=== PATIENT | female | born 1985 | race Caucasian/White ===

== ENCOUNTER 2017-10-05 15:35 | Emergency (ER) | payer OTHER ==
[~2017-10-05] VITALS: Ht 165.1 cm; Wt 147.4 kg
[~2017-10-05 15:35] MED LIST: KEFLEX500 MG PO; LAMOTRIGINE100 MG PO; MILK OF MA400 MG/5 M PO; NORCO 5-325 TA1 EACH PO; TYLENOL 8 HOUR650 MG PO; ZANTAC150 MG PO; [UNRECOGNIZED DRUG - SUPPLY] MC
[2017-10-05] MEDS ORDERED: ACETAMINOPHEN-1 EAC1 PO (16:46)
[2017-10-05] MEDS ORDERED: CRUTCH1 EACH (16:47)
== END 2017-10-05 17:10 | disposition home or self-care (01) ==
LOC: ED 15:35
DX: S93.402A Sprain of unspecified ligament of left ankle, initial encounter (principal); X50.9XXA Other and unspecified overexertion or strenuous movements or postures, initial encounter; E66.9 Obesity, unspecified; K21.9 Gastro-esophageal reflux disease without esophagitis; J45.909 Unspecified asthma, uncomplicated; Z88.5 Allergy status to narcotic agent; Z79.899 Other long term (current) drug therapy
CPT/HCPCS: 73610; 99283

== ENCOUNTER 2018-02-04 19:10 | Emergency (ER) | payer OTHER ==
[~2018-02-04] VITALS: Ht 165.1 cm; Wt 154.7 kg
[~2018-02-04 19:10] MED LIST changes: +ACETAMINOPHEN-1 EAC1 PO; +CRUTCH1 EACH
[2018-02-04] MEDS ORDERED: ZOFRAN4 MG PO (19:28)
[2018-02-04] MEDS ORDERED: OMEPRAZOLE20 MG PO (19:28)
== END 2018-02-04 21:53 | disposition left against medical advice (07) ==
LOC: ED 19:10
DX: K52.9 Noninfective gastroenteritis and colitis, unspecified (principal); E66.9 Obesity, unspecified; K21.9 Gastro-esophageal reflux disease without esophagitis; J45.909 Unspecified asthma, uncomplicated; Z88.5 Allergy status to narcotic agent; Z79.899 Other long term (current) drug therapy
CPT/HCPCS: 80053; 81001; 84703; 96361; 96374; 99284; J2405; J7030

== ENCOUNTER 2018-11-05 20:50 | Emergency (ER) | payer OTHER ==
[~2018-11-05] VITALS: Ht 165.1 cm; Wt 149.2 kg
[~2018-11-05 20:50] MED LIST changes: +OMEPRAZOLE20 MG PO; +ZOFRAN4 MG PO
--- OUTSIDE RECORDS SUMMARY | 2018-11-05 20:54 | XMS ---
PreManage Notification: NEVIN YATES Security Carcass Splitter Events 1 event(s) in the past 18 months Most recent security events: Elopement at [facility] 02/04/2018 19:10 - Patient eloped before treatment completed. Details: AMA CRITERIA MET - Group Notification CARE PROVIDERS ANGELICA COMBS Physician Assistant Lorin Corona PHONE: [phone] Nimesh has no Care Guidelines for this patient. Jonnie VISIT COUNT (12 MO.) 2 [facility]. TOTAL 2 NOTE: Visits indicate total known visits. ED/UCC VISIT TRACKING (12 MO.) 11/05/2018 20:51 [facility] [place] TYPE: Emergency COMPLAINT: - WOUND CHECK/SORE,LEFT SIDE 02/04/2018 19:10 [facility] [place] TYPE: Emergency COMPLAINT: - VOMITING/EAR PAIN DIAGNOSES: - Unspecified asthma, uncomplicated - Allergy status to narcotic agent status - Other skilled nursing (current) drug therapy - Obesity, unspecified - Gastro-esophageal reflux disease without esophagitis - Nausea with vomiting, unspecified - Noninfective gastroenteritis and colitis, unspecified INPATIENT VISIT TRACKING (12 MO.) No inpatient visits to display in this time frame [id number]
[2018-11-05] MEDS ORDERED: VENTOLIN HFA18 GM INH (21:06)
[2018-11-05] MEDS ORDERED: BACTRIM DS TAB1 EACH PO (21:43)
== END 2018-11-05 22:03 | disposition home or self-care (01) ==
LOC: ED 20:50
DX: L02.211 Cutaneous abscess of abdominal wall (principal); E66.9 Obesity, unspecified; K21.9 Gastro-esophageal reflux disease without esophagitis; Z88.5 Allergy status to narcotic agent; Z79.899 Other long term (current) drug therapy
CPT/HCPCS: 99283

== ENCOUNTER 2020-01-09 09:42 | Emergency (ER) | payer OTHER ==
[~2020-01-09] VITALS: Ht 165.1 cm; Wt 142.9 kg
[~2020-01-09 09:42] MED LIST changes: +BACTRIM DS TAB1 EACH PO; +MOBIC15 MG PO; +VENTOLIN HFA18 GM INH
--- OUTSIDE RECORDS SUMMARY | 2020-01-09 09:44 | XMS ---
PreManage Notification: NEVIN YATES Security Music Engineer Events No recent Security Events currently on file CRITERIA MET - Group Notification - PDMP CARE PROVIDERS SILVIA LOMBARDI [facility] 12/12/2018-Current PHONE: [phone] SILVIA LOMBARDI Dentist: Protohistorian 12/12/2018-Current PHONE: [phone] [facility] Current PHONE: [phone] Nimesh has no Care Guidelines for this patient. E.D. VISIT COUNT (12 MO.) 1 [facility] P[facility]co TOTAL 1 NOTE: Visits indicate total known visits. ED/UCC VISIT TRACKING (12 MO.) 01/09/2020 09:42 [facility] [place] TYPE: Emergency COMPLAINT: - RIGHT WRIST PAIN INPATIENT VISIT TRACKING (12 MO.) No inpatient visits to display in this time frame [id number]
[2020-01-09] MEDS ORDERED: NORCO 5-325 TA1 EACH PO (11:42)
--- NOTE | 2020-01-11 16:00 | NUR ---
PT CALLED WITH COMPLAINT ABOUT NOT GETTING CORRECT SCRIPTS FOR HER WRIST BRACES. PT STATES THAT HER INSURANCE WOULD NOT PAY WITH THE SCRIPT SHE HAD. ORIGINALLY SEEN BY DR LANDERS. DOWN TO ER TO SPEAK WITH DR LANDERS, NEW ORDER WRITTEN, FAXED TO [facility]. CALL PLACED TO [facility] WHO STATES PRESCRIPTION WILL WORK. PT NOTIFIED OF THIS, HARD COPY GIVEN TO ER ADMITTING FOR PT TO RECEIVABLE MANAGER AND PROBLEM RESOLVED.
== END 2020-01-09 12:06 | disposition home or self-care (01) ==
LOC: ED 09:42
DX: G56.01 Carpal tunnel syndrome, right upper limb (principal); E66.9 Obesity, unspecified; K21.9 Gastro-esophageal reflux disease without esophagitis; J45.909 Unspecified asthma, uncomplicated; E11.9 Type 2 diabetes mellitus without complications; Z88.5 Allergy status to narcotic agent; Z79.899 Other long term (current) drug therapy
CPT/HCPCS: 73110; 99283-25

== ENCOUNTER 2020-12-01 06:53 | Emergency (ER) | payer OTHER ==
[~2020-12-01] VITALS: Ht 165.1 cm; Wt 161.0 kg
--- OUTSIDE RECORDS SUMMARY | 2020-12-01 06:56 | XMS ---
PreManage Notification: NEVIN YATES Security Ash Pit Worker Events No recent Security Events currently on file CRITERIA MET - Group Notification CARE PROVIDERS SILVIA LOMBARDI [facility] 12/12/2018-Current PHONE: [phone] SILVIA LOMBARDI Dentist: Resident Program Specialist 12/12/2018-Current PHONE: [phone] [facility] Current PHONE: [phone] Nimesh has no Care Guidelines for this patient. E.D. VISIT COUNT (12 MO.) 2 [facility] Pacheco TOTAL 2 NOTE: Visits indicate total known visits. ED/UCC VISIT TRACKING (12 MO.) 12/01/2020 06:53 [facility] TYPE: Emergency COMPLAINT: - ABD PAIN/VOMITING 01/09/2020 09:42 [facility] [place] TYPE: Emergency COMPLAINT: - RIGHT WRIST PAIN DIAGNOSES: - Unspecified asthma, uncomplicated - Type 2 diabetes mellitus without complications - Other detention (current) drug therapy - Gastro-esophageal reflux disease without esophagitis - Carpal tunnel syndrome, right upper limb - Allergy status to narcotic agent - Obesity, unspecified INPATIENT VISIT TRACKING (12 MO.) No inpatient visits to display in this time frame [id number]
[2020-12-01] MEDS ORDERED: LEVOFLOXACIN750 MG PO (07:07)
[2020-12-01] MEDS ORDERED: PREDNISONE20 MG PO (07:07)
[2020-12-01] MEDS ORDERED: ONDANSETRON ODT4 MG PO (14:37)
== END 2020-12-01 14:59 | disposition home or self-care (01) ==
LOC: ED 06:53
DX: R10.12 Left upper quadrant pain (principal); M25.562 Pain in left knee; G89.29 Other chronic pain; R11.10 Vomiting, unspecified; E66.9 Obesity, unspecified; K21.9 Gastro-esophageal reflux disease without esophagitis; E11.9 Type 2 diabetes mellitus without complications; J45.909 Unspecified asthma, uncomplicated; Z88.5 Allergy status to narcotic agent; Z79.899 Other long term (current) drug therapy; Z79.52 Long term (current) use of systemic steroids
CPT/HCPCS: 74177; 80053; 83690; 84703; 85025; 85379; 96375; 99284-25; J1170; J2060; J2405; J7030; Q9967

== ENCOUNTER 2021-05-13 06:00 | Inpatient (IN) | payer OTHER ==
[~2021-05-13] VITALS: Ht 165.1 cm; Wt 151.8 kg
[~2021-05-13 06:00] MED LIST changes: +HYDROXYZINE HCL25 MG PO; +LEVOFLOXACIN750 MG PO; +ONDANSETRON ODT4 MG PO; +PREDNISONE20 MG PO; +VRAYLAR1.5 MG PO
[2021-05-13] MEDS ORDERED: WOMEN'S 50 PLU1 EACH PO (06:18)
--- NOTE | 2021-05-13 13:26 | NUR ---
05/13/21 1326 Brenner,Nery Ewing 1314: PATIENT ARRIVED TO PACU WITH ORAL AIRWAY IN PLACE. 1317: PATIENT OPENS EYE TO NAME, BUT FALLS BACK TO SLEEP QUICKLY.
--- NOTE | 2021-05-13 15:00 | NUR ---
THIS RN IN PTS ROOM TO GET REPORT FROM BETSY WILKERSON. PT ARRIVED LOOKING DROWSY, BUT ABLE TO ANSWER QUESTIONS APPROPRIATELY. PT DENIES PAIN AND NAUSEA AT THIS TIME.
--- NOTE | 2021-05-13 16:45 | NUR ---
THIS RN IN PTS ROOM TO CHECK ON PT. PT DOIGN WELL AND JARAD PTS BRO IN LAW IN ROOM. PT DENIES PAIN OR DESIRE FOR PAIN MEDS AT THIS TIME. PT HAS INCISION ON LOWER ABD- TUCKED IN PTS PANUS- COVERED WITH DRESSING. MAX PAD IN PLACE.
--- NOTE | 2021-05-13 17:30 | NUR ---
THIS RN IN PTS ROOM TO CHECK ON HER. PT STATES THAT SHE IS DOING WELL, GOT PAIN MEDS. READY TO EAT DINNER. PAIN CONTROLLED AND NO NAUSEA NOTED. NO OTHER NEEDS.
--- NOTE | 2021-05-13 19:30 | NUR ---
awake, watching tv, ivf infusing. on room air. No requests. at bedside
--- NOTE | 2021-05-13 20:29 | NUR ---
Pt on room air, laying inbed, will do complete body assessment at [phone] her requests. On room air. c/o 01/16 abd pain. medicated with Motrin. tolerating reg diet, fluids and snacks well. f/c patent draining yellow urine. SL R hand patent, IVF infusing w/o problem L hand IV site. generalized edema, pt morbidly obese. cooperative
--- NOTE | 2021-05-13 22:31 | NUR ---
Pt c/o back pain, medicated with Oxycodone 10mg po 12/16 plus scheduled Tylenol. Up to edge of bed, sat on edge of bed, tolerated well, stood up for several minutes and then sat edge of bed again, toleratd very well. Helped self to bed with minimum of assist. Coop with assessment, dim lung sounds. HEA bowel tones. low transverse low abd incision covered with surgical tape. f/c not chronic, patent. draining clear yellow urine. small amount of dark red vaginal drainage present, no odor. edema to hands and L foot more than right, elevated with pillows, pillows uner back bilat. tolerating fluids well, ivf infusing, at bedside.
--- NOTE | 2021-05-14 00:10 | NUR ---
PARTIAL BED BATH TO PATIENT.
--- NOTE | 2021-05-14 00:21 | NUR ---
C/O ITCHING, BED BATH GIVEN,
--- NOTE | 2021-05-14 02:12 | NUR ---
pt awake, coop with vitals and assessment, low transverse abd incision dressing in place. scant amount of sanguineous vaginal drainage noted. f/c patent. tolerating fluids well. c/o abd pain, medicated with Oxycodone. Simethacone given per gas pain. cooperative. IVF infusing w/o problems
--- NOTE | 2021-05-14 04:19 | NUR ---
tolerating dluids well, awake, f/c patent. ivf infusing. call light and fludis at hands reach
--- NOTE | 2021-05-14 05:55 | NUR ---
f/c dc'd at 0549, pt aware of post void residual checks. SL at her requests, tolerating liquids well. SCD's off at her requests, waled to br, sitting in toilet, denies passing gas but feeling like abd gas pain at this time. Medicated with Oxycodone 10mg po and scheduled tylenol per abd pain.
--- NOTE | 2021-05-14 06:00 | NUR ---
Pt on room air,, audible wheezing heard, lungs dim at bases fine crackles no wheezing auscultated, no sob. f/c dc'd at 0549, walked up to br, passed gas. low abd transverse incision covered with surgical dressing intact. abd large tender HEA. has 2 SL. IVF sl at this time at her requests as she wants to get up to br w/o the IVF. will notify MD. tolerated liquids very well, no emesis. SCDS off at this time. has slept off and on. Has been medicated with motrin, Oxycodone and scheduled Tylenol per abd pain with good to fair pain relief. Simethacone given per abd gas. pleasant and coop Pt has been out of bed twice this shift. family at bedside
--- NOTE | 2021-05-14 07:30 | NUR ---
Report received from RN Moraima, pt resting in bed safely w/ call light in reach, no needs at this time.
--- NOTE | 2021-05-14 09:00 | NUR ---
Spoke with Naheed. She states she lives in a large home with spouse, brother in law, and roommate. Her two children also live with them. She lives in a 2 story home. Denies issues with stairs. FAmily will assist her with any needs.
[2021-05-14] MEDS ORDERED: ACETAMINOPHEN500 MG PO (10:00)
--- NOTE | 2021-05-14 10:00 | NUR ---
Pt sitting up in bed w/ call light in reach. Morning assesment completed, scheduled meds given, and pt IV fluids DC'd and SL per provider orders. Pt c/o 8/10 pain, PRN pain meds given per request. Pt amble to void after mane removal this AM. Pt ambulated in hallway, one full lap.
--- NOTE | 2021-05-14 10:02 | NUR ---
MED REC COMPLETED BY PHARMACY
--- NOTE | 2021-05-14 12:00 | NUR ---
Pt up in hallway ambulating ind, no needs at this time, reports she voided and needs hat emptied
--- NOTE | 2021-05-14 14:00 | NUR ---
Pt resting in bed safely w/ call light i reach pt c/o 8/10 pain at surgical incision, PRN and scheduled pain meds given per provider order. Pt denies any needs at this time
--- NOTE | 2021-05-14 15:55 | PATH ---
[facility] [address], [place] [address] Signed SPECIMEN(S): A BILATERAL TUBES, CERVIX, UTERUS SPECIMEN SOURCE: A. BILATERAL TUBES, CERVIX, UTERUS CLINICAL HISTORY: Leiomyoma, polycystic ovaries, excessive uterine bleeding. TLH, BS with poss. RHODA, BS. FINAL PATHOLOGIC DIAGNOSIS: Uterus, cervix, and bilateral fallopian tubes, hysterectomy and bilateral salpingectomy: - Cervix: No histopathologic abnormality. - Endometrium: Secretory phase endometrium. - Myometrium: Leiomyomas (8 cm in greatest dimension). - Fallopian tubes: Paratubal cysts. - No evidence of malignancy. NAL:cml:C2NR MICROSCOPIC EXAMINATION: Histologic sections of all submitted blocks are examined by light microscopy. These findings, together with the gross examination, support the pathologic diagnosis. GROSS DESCRIPTION: The specimen, labeled "EP, A," and designated on the requisition "bilateral tubes, cervix, uterus," is received in formalin and consists of a morcellated uterus (883 gram, 17.0 x 15.7 x 10.5 cm in aggregate), cervix (5.5 cm in length by 0.6 cm in diameter) with pink, hemorrhagic and fragmented cervical mucosa and patent slit-shaped os (1.5 x 0.4 cm), and two undesignated fimbriated fallopian tube segments (4.4 cm in length x 0.8 cm in diameter and 4.0 cm in length x 0.8 cm in diameter). One fallopian tube segment is arbitrarily inked blue. Both fallopian tube segments are pink-eldridge with attached paratubal cysts (ranging in size from 0.2-0.3 cm in greatest dimension) and are sectioned to reveal a pink to white-eldridge cut surface. The fimbriae are entirely submitted. The cervix is sectioned to reveal a pink to red-brown endocervix (endocervical canal: 5.0 cm in length and ranging in diameter from 0.7-1.5 cm) with mucoid material-filled cysts within the wall of the PATIENT NAME: NEVIN YATES PATHOLOGY DATE OF : 83 REPORT #: [id number] PHYSICIAN: EDYTA JUAREZ PCP: SILVIA LOMBARDI MD REPORT IS CONFIDENTIAL AND NOT TO BE RELEASED WITHOUT AUTHORIZATION [facility] [address], [place] [address] Signed cervix that range in size from 0.2-0.7 cm in greatest dimension. The remainder of the specimen shows eldridge-pink uterine serosa, eldridge trabeculated myometrium, red-brown endometrium (up to 0.5 cm in thickness) and multiple white-eldridge, well-circumscribed intramural whorled masses (0.5-8.0 cm in greatest dimension). The largest mass is slightly hemorrhagic with areas of softening. Network Systems Operator sections are submitted as follows: (A1-A2) Fallopian tubes (A3) Cervix (A4) Endomyometrium (A5-A6) Largest myometrial mass (A7-A8) Additional myometrial masses AC (under the direct supervision of a pathologist) The Gross Description was prepared using a voice recognition system. The report was reviewed for accuracy; however, sound-alike word errors, addition and/or deletions may occur. If there is any question about this report, please contact Client Services. PERFORMING LABORATORY: The technical component was performed by [facility], [address] [place] [id number] (Environmental Health Inspector: Robina Camilo MD; CLIA# [id number]).Professional interpretation was performed by [facility], [facility], [address] [place] [id number] (CLIA# [id number]). Diagnostician: Bree Chambers MD Pathologist Electronically Signed 05/14/2021 Copies: ~ PATIENT NAME: NEVIN YATES PATHOLOGY DATE OF : 83 REPORT #: [id number] PHYSICIAN: [email or web address] PATHOLOGY PCP: SILVIA LOMBARDI MD REPORT IS CONFIDENTIAL AND NOT TO BE RELEASED WITHOUT AUTHORIZATION
--- NOTE | 2021-05-14 16:00 | NUR ---
Pt ambulating in hallway ind, no needs at this time
--- NOTE | 2021-05-14 18:30 | NUR ---
Pt resting in bed safely w/ call light in reach, pt c/o pain, RN Annita in to give PRN pain meds, no further needs at this time
--- NOTE | 2021-05-14 20:00 | NUR ---
PT WAS UP TO VOID 400MLS OF URINE, PROVIDED TEA AND HONEY. PT DENIES FURTHER NEEDS AT THIS TIME. CALL LIGHT IS CLOSE.
--- NOTE | 2021-05-14 22:04 | NUR ---
DR FLORES PHOTOVOLTAIC INSTALLER FOR DR CONDON. NOTIFIED OF PTS INCREAED C/O ITCHING. NEW ORDERS TO GIVE BENADRYL 25 TO 50MG PO Q8H PRN ITCHING.
--- NOTE | 2021-05-14 22:40 | NUR ---
pt medicated with benadryl 25mg po itching. Up to br, voided, back to bed. tolerated well. transverse low abd dressing with old drainage. changed at pts and significants others requests. [address], bruised area mid way incision area replaced with non adherent gauze, 4x4 gauze abd and medipore tape. light ss drainage noted right at bruised area in incision mid way. edges well approx, clean. tolerated fair.
--- NOTE | 2021-05-14 23:01 | NUR ---
C/O 01/16 ABD PAIN, MEDICATED WITH OXYCODONE 10MG PO
--- NOTE | 2021-05-15 02:00 | NUR ---
PT OUT TO [facility], THEN BACK TO [facility], PT REQUESTING "BATH WIPES" C\\O ITCHYNESS, IN TO PROVIDE TO PT, PT THEN NEEDED HELP WITH "BATH", PROVIDED TO PT, PT UP TO THE CHAIR, ICE WATER AND TEA PROVIDED, RN IN TO ROUND ON PT
--- NOTE | 2021-05-15 02:26 | NUR ---
in hciar, legs elevated, c/o abd pain, medicated with Oxycodone 10mg po. tolerating fluids well, coop with assessment, on room air. abd dressing intact. generalized edema 2SL patent
--- NOTE | 2021-05-15 04:26 | NUR ---
PT REPORTS HEARTBURN, PRN HEARTBURN MED PROVIDED. VS AND I&O COMPLETED. LUCI RN IN ROOM TO PREPARE PT FOR SHOWER.
--- NOTE | 2021-05-15 04:52 | NUR ---
pt taking shower, medicated with Simethacone per abd gas pain.
--- NOTE | 2021-05-15 06:03 | NUR ---
pt medicated with oxycodone 10mg per abd pain. dressing clean small amount of drainage at R lower end of dressing. Up in chair after shower, tolerated well, has lucie own DMI at bedside, no sob noted with exertion, tolerating fluids well, voiding QS, scant amount of vaginal discharge present. ambulated inroom,
--- NOTE | 2021-05-15 06:05 | NUR ---
pt has not slept much this shift, on room air, lungs dim at bases, has her own home DMI at bedside. no sob noted this shift. Low transverse abd incision dressing chagned as per pts and friend insistence, old ddressing was soiled at right end. ziggy in place, bruised areas mid center of incision with slight ss leakage noted at that area. incision covered with nonadherent pad, 4x4 gauze, abd and medipore tape. small amount of fresh drainage noted on right mid 1/3 of dressing. pt removed iv site dressings as she was "itching asns she is allergic to tape" stated. opsite applied to both IV sites and covered with coban. both sites patent. Pt has c/o itchy skin. applied lotion all over body from forehead to toes and back several times. Dr Brenner called as he is backend python developer for Dr Osuna and new orders for Benadryl for itching which she received 25mg with good relief. Has had a bed bath once and this am she had a total shower with her significant other helping her. tolerated very well. Has been medicated with Oxycodone,Motrin,Tylenol and Simethacone per abd pain/gas pain with good to fair pain relief. Has tolerated fluids, juices, multiple snacks very well. c/o upset stomach, medicated, effective. many small requests met with her satisfaction. has walked in room and transfers to chair well. uses call light.
--- NOTE | 2021-05-15 06:35 | NUR ---
Pt walking hallways several times up and down nursing stations and hallways. tolerating well.
--- NOTE | 2021-05-15 07:30 | NUR ---
Shift report received from RN Moraima, pt resting in bed safely w/ call light in reach, no needs at this time
--- NOTE | 2021-05-15 08:20 | NUR ---
PT SITTING UP ON COUCH WITH EATING BREAKFAST. PT ACCEPTED WARM WASHCLOTH. UPDATED WHITE BOARD. CALL LIGHT WITHIN REACH, NO FURTHER NEEDS AT THIS TIME.
--- NOTE | 2021-05-15 08:30 | OR ---
[facility] [address] [place], [place] [address] Signed DATE OF OPERATION: 05/13/2021 SURGEON: Dora Osuna MD BRAID MAKER: Stefan Valle MD PREOPERATIVE DIAGNOSES: Uterine fibroids, pelvic pain, and morbid obesity. POSTOPERATIVE DIAGNOSES: Uterine fibroids, pelvic pain, and morbid obesity. PROCEDURE: Laparoscopy, laparotomy with total abdominal hysterectomy, bilateral salpingectomy. ANESTHESIA: General ET. ESTIMATED BLOOD LOSS: 400 mL. DRAINS: Wray catheter. INDICATIONS AND FINDINGS: The patient is a 36-year-old female, who has a history of uterine fibroids, which have been causing increasing pain. Ultrasounds are consistent with degenerating fibroids. She is also morbidly obese though she is in the process of losing weight. She is still over 330 pounds at this point. At the time of surgery, exam under anesthesia revealed an enlarged uterus approximately 16-week size. Adnexa were not palpable at that time. On laparoscopy, the uterus was consistent with very large fibroids with a very smooth contour. The ovaries appeared normal. Unfortunately, the uterus could not be elevated and because of the size of the uterus, the sidewalls were not available for dissection. Because of this laparotomy was required for hysterectomy. DESCRIPTION OF PROCEDURE: The patient was prepped and draped in the dorsal lithotomy position. The swan neck weighted speculum was placed into the vagina. The anterior lip of the cervix Electronically Signed By: DORA OSUNA MD 05/15/21 0830 PATIENT NAME: NEVIN YATES OPERATIVE REPORT DATE OF : 83 REPORT #: [id number] PHYSICIAN: DORA OSUNA MD PCP: SILVIA LOMBARDI MD REPORT IS CONFIDENTIAL AND NOT TO BE RELEASED WITHOUT AUTHORIZATION [facility] [address], [place] [address] Signed was visualized with some difficulty and grasped with a single tooth tenaculum. The uterus was then sounded to 13 cm. The endocervical canal was dilated and the VCare cannula was inserted and the balloon inflated at the fundus. The tenaculum and speculum were removed and the cup was fitted over the cervix and the locking cap fitted into place. Attention was directed above. The infraumbilical area was injected with 0.5% Marcaine plain. Incision was made with a knife. Each layer was then serially elevated and incised until the fascia was opened and identified and stay sutures of 0 Vicryl placed. The peritoneum was opened sharply as well. Following this, the Tono cannula was placed and the balloon inflated. Placement of the scope confirmed proper positioning. The abdomen was inflated and the pelvis visualized. At this point, it was decided that the laparoscopic procedure was not going to be possible, given the size of the uterus and the difficulty accessing the sidewall well as the cul-de-sac. Because of this, the Tono cannula was removed from the abdomen and the fascial incision re-identified. It was closed with a running suture of 0 Vicryl. The stay sutures were tied across as well. The subcuticular suture of 3-0 Vicryl Rapide was used to close the skin. Following this, a Pfannenstiel skin incision was made and carried down to the fascia with quite a bit of difficulty. I estimated the subcu layer to be at least 6 inches thick. Once the fascia was identified, it was opened sharply. The inferior and superior fascial flaps were then created with some difficulty. Bleeding in the muscles particularly inferiorly required several sutures of 0 Vicryl for control of bleeding. Following this, the peritoneum was entered and opened and the incision extended superiorly and inferiorly. Blunt traction was also used in an effort to expand the incision as it appeared to be too small to actually elevate the uterus through it. The muscles were divided partially. The fascia was also incised in the midline inferiorly to allow for further expansion of the wound. Following this, the Lewis retractor could be placed and the uterus delivered through the incision. The round ligament was identified on the patient's right side and grasped with Darlin clamps x2 and divided. This was suture ligated with 0 Vicryl. The finger was pushed through from posterior to anterior, isolating the utero-ovarian pedicle and this was clamped x2 and divided. A free tie of 0 Vicryl followed by suture ligature of 0 Vicryl was then placed. Attention was then directed on the patient's left side. The round ligament was identified and grasped x2 with Darlin clamps and divided. It was suture ligated with 0 Vicryl. The finger was then pushed through from posterior to anterior, isolating the utero-ovarian pedicle and this was also divided after clamping. A free tie of 0 Vicryl followed by a suture ligature of 0 Vicryl was then placed. The anterior leaf of the peritoneum was then incised allowing for creation of a partial bladder flap. The posterior leaf was taken down as well. Following this, the uterine vessels were grasped at the level of the internal os on the patient's left side and divided. This was suture ligated with 0 Vicryl. Attention was redirected to the patient's right side and the anterior leaf of the peritoneum was taken down as well as the posterior leaf. The round Electronically Signed By: DORA OSUNA MD 05/15/21 0830 PATIENT NAME: NEVIN YATES OPERATIVE REPORT DATE OF : [birth year] REPORT #: [id number] PHYSICIAN: DORA OSUNA MD PCP: SILVIA LOMBARDI MD REPORT IS CONFIDENTIAL AND NOT TO BE RELEASED WITHOUT AUTHORIZATION [facility] [address] [place], [place] [address] Signed ligament also required re-tying as it had torn during the attempts at dissection. Following this, the uterine vessels were grasped at the level of the internal os and divided and suture ligated with 0 Vicryl. The uterus was then injected with a dilute solution of vasopressin, 20 units of vasopressin in 20 mL of saline. This was injected into the uterus to hopefully decrease the blood loss. The fundus was then lopped off, particularly posteriorly to aid in visualization of the cervix and vessels. Following this, another piece was taken off anteriorly to this to further allow visualization. The V Care cannula was removed from below at this time. Following this, serial bites were taken in the cardinal ligament areas on each side with each divided with the Cassidy scissors and suture ligated with 0 Vicryl. This was done to the level of the external os. At this point, a curved Z-clamp could be placed on the patient's right side incorporating the uterosacral ligament and this pedicle divided and suture ligated with 0 Vicryl. The vaginal canal was opened at this time and the specimen removed. Little bit of cervix remained after the specimen was removed and this was secondarily excised. The cuff was grasped with Darlin clamps and was closed with [id number] sutures of 0 Vicryl. Following this, bleeding points were controlled at the level of the cuff, the ovaries and infundibulopelvic ligaments bilaterally as well as the round ligaments. There was a rent in the peritoneum near the left side of the vaginal cuff inferior to the cuff and this was suture ligated with a cldemj-hs-dctnu of 0 Vicryl as well. Following this, the pelvis was irrigated multiple times and some pressure also applied to the pelvis with lap tapes. Following this, it did appear that the pelvis was hemostatic. Because of the difficulty achieving hemostasis, it was felt that Tisseel would be helpful in maintaining this. For this, Tisseel was sprayed over the vaginal cuff and over each ovary to further help with the hemostasis. Following this, the retractor and lap tapes were all removed. The peritoneum was identified and the peritoneum was closed with a running suture of 3-0 Vicryl. The muscles were not reapproximated. The bleeding points over the muscles were controlled with cautery as well as [id number]-[id number] sutures of 0 Vicryl near the inferior aspect again. This layer was irrigated and hemostasis was achieved. The remaining Tisseel was sprayed over the muscle area to further allow hemostasis. The fascia was then identified and was closed from each angle to the midline with a running suture of 0 Vicryl. The split inferiorly was separately repaired with a running suture of 0 Vicryl as well. This amounted to a kind of a T-type incision on the fascia. Following this, bleeding points in the subcu were identified and cauterized. This area was irrigated and found to be hemostatic. Two layers were placed in the subcu. One was placed deep with a running layer of 3-0 Vicryl. Another one was placed more superficially again in a running manner. The skin was closed with ziggy. All sponge and needle counts were correct. She tolerated the procedure well and was taken to the recovery room in good condition. Electronically Signed By: DORA OSUNA MD 05/15/21 0830 PATIENT NAME: NEVIN YATES OPERATIVE REPORT DATE OF : [birth year] REPORT #: [id number] PHYSICIAN: DORA OSUNA MD PCP: SILVIA LOMBARDI MD REPORT IS CONFIDENTIAL AND NOT TO BE RELEASED WITHOUT AUTHORIZATION [address] [place], [place] [address] Signed Dora Osuna MD PJW/MODL /[id number] cc: Stefan Valle MD Copies: STEFAN VALLE MD ~ Electronically Signed By: DORA OSUNA MD 05/15/21 0830 PATIENT NAME: NEVIN YATES OPERATIVE REPORT DATE OF : [birth year] REPORT #: [id number] PHYSICIAN: DORA OSUNA MD PCP: SILVIA LOMBARDI MD REPORT IS CONFIDENTIAL AND NOT TO BE RELEASED WITHOUT AUTHORIZATION
[2021-05-15] MEDS ORDERED: IBUPROFEN800 MG PO (09:05)
[2021-05-15] MEDS ORDERED: ACETAMINOPHEN500 MG PO (09:06)
[2021-05-15] MEDS ORDERED: GABAPENTIN600 MG PO (09:07)
[2021-05-15] MEDS ORDERED: ALLERGY25 M1 PO (09:09)
[2021-05-15] MEDS ORDERED: OXYCODONE HCL5 MG PO (09:10)
[2021-05-15] MEDS ORDERED: FERROUS GLUCON240 MG PO (09:11)
[2021-05-15] MEDS ORDERED: SENNA8.6 MG PO (09:12)
--- NOTE | 2021-05-15 09:21 | NUR ---
THIS COMPUTER INFORMATION SYSTEMS INSTRUCTOR IN TO GET VS. PT WAS BLEEDING FROM SURGICAL SITE AND SAID THEY SUDDENLY FELT COLD AND STARTED SHAKING. ALERTED RN'S ISAC, AMMON AND MELISSA. RN'S TOOK CARE OF SURGICAL SITE. BROUGHT WARM BLANKETS. PT NOW IN BED WITH BLANKETS. CALL LIGHT WITHIN REACH, NO FURTHER NEEDS AT THIS TIME
--- NOTE | 2021-05-15 10:00 | NUR ---
Pt sitting up in chair w/ call light in reach. Assisted pt w/ dressing, both IV sites removed, no redness or swelling noted, gauze and coban applied, pt educated on post IV site care. Discharge instructions given to pt and her , all questions and concerns answered. Pt taken to front via w/c, where had car waiting. VSS on RA.
== END 2021-05-15 10:50 | disposition home or self-care (01) | DRG 742 ==
LOC: DS 06:00 → MS 14:51
PROVIDERS: ADMIT Obstetrics & Gynecology; ATTEND Obstetrics & Gynecology
PROC: 0UJD4ZZ Inspection of Uterus and Cervix, Percutaneous Endoscopic Approach (ICD-10-PCS; 2021-05-13)
PROC: 0UB70ZZ Excision of Bilateral Fallopian Tubes, Open Approach (ICD-10-PCS; 2021-05-13)
PROC: 0UT90ZZ Resection of Uterus, Open Approach (ICD-10-PCS; principal; 2021-05-13 06:45)
DX: D25.1 Intramural leiomyoma of uterus (principal); Z68.43 Body mass index [BMI] 50.0-59.9, adult; E66.01 Morbid (severe) obesity due to excess calories; Z53.31 Laparoscopic surgical procedure converted to open procedure; K21.9 Gastro-esophageal reflux disease without esophagitis; K75.81 Nonalcoholic steatohepatitis (NASH); G47.33 Obstructive sleep apnea (adult) (pediatric); R73.03 Prediabetes; Z98.51 Tubal ligation status; Z88.5 Allergy status to narcotic agent; Z91.048 Other nonmedicinal substance allergy status; Z90.89 Acquired absence of other organs; Z90.49 Acquired absence of other specified parts of digestive tract; Z98.890 Other specified postprocedural states
CPT/HCPCS: 00944; 85027; A9270; J0131; J0694; J1100; J1170; J1644; J1885; J2001; J2405; J2704; J2765; J3010; J7121

== ENCOUNTER 2021-05-19 20:01 | Emergency (ER) | payer OTHER ==
[~2021-05-19] VITALS: Ht 165.1 cm; Wt 151.5 kg
[~2021-05-19 20:01] MED LIST changes: +ACETAMINOPHEN500 MG PO; +ALLERGY25 M1 PO; +FERROUS GLUCON240 MG PO; +GABAPENTIN600 MG PO; +IBUPROFEN800 MG PO; +OXYCODONE HCL5 MG PO; +SENNA8.6 MG PO; +WOMEN'S 50 PLU1 EACH PO
--- OUTSIDE RECORDS SUMMARY | 2021-05-19 20:04 | XMS ---
PreManage Notification: NEVIN YATES Security Nursing Department Chairperson Events No recent Security Events currently on file CRITERIA MET - PDMP - ED - Positive COVID-19 Lab Result - OHA - Group Notification CARE PROVIDERS SILVIA LOMBARDI [facility] 12/12/2018-Current PHONE: [phone] SILVIA LOMBARDI Dentist: Auto Inspector 12/12/2018-Current [facility]: [phone] [facility] PHONE: Unknown Nimesh has no Care Guidelines for this patient. E.D. VISIT COUNT (12 MO.) 2 [facility] TOTAL 2 NOTE: Visits indicate total known visits. ED/UCC VISIT TRACKING (12 MO.) 05/19/2021 20:01 [facility] [place] TYPE: Emergency COMPLAINT: - POST OP PROBLEM 12/01/2020 06:53 [facility] [place] TYPE: Emergency COMPLAINT: - ABD PAIN/VOMITING DIAGNOSES: - Other fdc (current) drug therapy - MCFP (current) use of systemic steroids - Other chronic pain - Left upper quadrant pain - Unspecified asthma, uncomplicated - Vomiting, unspecified - Pain in left knee - Allergy status to narcotic agent - Obesity, unspecified - Type 2 diabetes mellitus without complications - Gastro-esophageal reflux disease without esophagitis INPATIENT VISIT TRACKING (12 MO.) 05/13/2021 14:[address] [facility] [place] TYPE: Medical Surgical COMPLAINT: - S/P L/S,TAHBS DIAGNOSES: - Other specified postprocedural states - Excessive and frequent menstruation with irregular cycle - Leiomyoma of uterus, unspecified - Acquired absence of other specified parts of digestive tract - Morbid (severe) obesity due to excess calories - Intramural leiomyoma of uterus - Obstructive sleep apnea (adult) (pediatric) - Other nonmedicinal substance allergy status - Prediabetes - Nonalcoholic steatohepatitis (VÁZQUEZ) - Tubal ligation status - Allergy status to narcotic agent - Laparoscopic surgical procedure converted to open procedure - Morbid (severe) obesity due to excess calories - Acquired absence of other organs - Gastro-esophageal reflux disease without esophagitis - Laparoscopic surgical procedure converted to open procedure - Body mass index [BMI] 50.0-59.9, adult - Other nonmedicinal substance allergy status - Allergy status to narcotic agent - Body mass index [BMI] 50.0-59.9, adult [email or web address]
== END 2021-05-19 22:23 | disposition home or self-care (01) ==
LOC: ED 20:01
DX: N99.89 Other postprocedural complications and disorders of genitourinary system (principal); E66.9 Obesity, unspecified; K21.9 Gastro-esophageal reflux disease without esophagitis; J45.909 Unspecified asthma, uncomplicated; E11.9 Type 2 diabetes mellitus without complications; Z88.5 Allergy status to narcotic agent; Z91.048 Other nonmedicinal substance allergy status; Z79.899 Other long term (current) drug therapy
CPT/HCPCS: 85025; 99283

== ENCOUNTER 2021-05-21 08:40 | Emergency (ER) | payer OTHER ==
[~2021-05-21] VITALS: Ht 165.1 cm; Wt 151.5 kg
--- OUTSIDE RECORDS SUMMARY | 2021-05-21 08:42 | XMS ---
PreManage Notification: NEVIN YATES Security Imaging Analyst Events No recent Security Events currently on file CRITERIA MET - PDMP - Group Notification - ED - Positive COVID-19 Lab Result - OHA - [facility] - 2 Visits in 30 Days CARE PROVIDERS SILVIA LOMBARDI [facility] 05/20/2021-Current PHONE: [phone] SILVIA LOMBARDI Dentist: Game Artist 12/12/2018-Current [facility]: [phone] [facility] Current PHONE: Unknown Nimesh has no Care Guidelines for this patient. E.D. VISIT COUNT (12 MO.) 3 [facility] Pacheco TOTAL 3 NOTE: Visits indicate total known visits. ED/UCC VISIT TRACKING (12 MO.) 05/21/2021 08:40 [facility] [place] TYPE: Emergency COMPLAINT: - POST OP PROBLEM 05/19/2021 20:01 [facility] [place] TYPE: Emergency COMPLAINT: - POST OP PROBLEM 12/01/2020 06:53 [facility] [place] TYPE: Emergency COMPLAINT: - ABD PAIN/VOMITING DIAGNOSES: - Other nursing home (current) drug therapy - alf (current) use of systemic steroids - Other chronic pain - Left upper quadrant pain - Unspecified asthma, uncomplicated - Vomiting, unspecified - Pain in left knee - Allergy status to narcotic agent - Obesity, unspecified - Type 2 diabetes mellitus without complications - Gastro-esophageal reflux disease without esophagitis INPATIENT VISIT TRACKING (12 MO.) 05/13/2021 14:51 [facility] [place] TYPE: Medical Surgical COMPLAINT: - S/P [...] - Body mass index [BMI] 50.0-59.9, adult [email or web address]
== END 2021-05-21 12:50 | disposition home or self-care (01) ==
LOC: ED 08:40
DX: N99.842 Postprocedural seroma of a genitourinary system organ or structure following a genitourinary system procedure (principal); E66.9 Obesity, unspecified; K21.9 Gastro-esophageal reflux disease without esophagitis; J45.909 Unspecified asthma, uncomplicated; E11.9 Type 2 diabetes mellitus without complications; Z88.5 Allergy status to narcotic agent; Z91.048 Other nonmedicinal substance allergy status; Z79.899 Other long term (current) drug therapy
CPT/HCPCS: 74177; 80048; 81001; 85025; 96375; 96376; 99284-25; J1170; J1885; J2405; Q9967

== ENCOUNTER 2021-05-22 08:58 | Emergency (ER) | payer OTHER ==
[~2021-05-22] VITALS: Ht 165.1 cm; Wt 151.5 kg
--- OUTSIDE RECORDS SUMMARY | 2021-05-22 09:00 | XMS ---
PreManage Notification: NEVIN YATES Security Factory Engineer Events No recent Security Events currently on file CRITERIA MET - ED - Positive COVID-19 Lab Result - OHA - Group Notification - [facility] - 2 Visits in 30 Days - PDMP CARE PROVIDERS SILVIA LOMBARDI [facility] 05/20/2021-Current PHONE: [phone] SILVIA LOMBARDI Dentist: Per Diem Registered Nurse 12/12/2018-Current PHONE: [phone] [facility] Current PHONE: Unknown Nimesh has no Care Guidelines for this patient. E.D. VISIT COUNT (12 MO.) [address] [facility] TOTAL 4 NOTE: Visits indicate total known visits. ED/UCC VISIT TRACKING (12 MO.) 05/22/2021 08:58 [facility] [place] TYPE: Emergency COMPLAINT: - BODY TWITCHES 05/21/2021 08:40 [facility] [place] TYPE: Emergency COMPLAINT: - POST OP PROBLEM 05/19/2021 20:01 [facility] [place] TYPE: Emergency COMPLAINT: - POST OP PROBLEM 12/01/2020 06:53 [facility] [place] TYPE: Emergency COMPLAINT: - ABD PAIN/VOMITING DIAGNOSES: - Other usp (current) drug therapy - lip reading teacher (current) use of systemic steroids - Other [...] - Body mass index [BMI] 50.0-59.9, adult [email or web address]
== END 2021-05-22 10:10 | disposition home or self-care (01) ==
LOC: ED 08:58
DX: T81.31XA Disruption of external operation (surgical) wound, not elsewhere classified, initial encounter (principal); T42.6X5A Adverse effect of other antiepileptic and sedative-hypnotic drugs, initial encounter; E66.9 Obesity, unspecified; Z68.43 Body mass index [BMI] 50.0-59.9, adult; K21.9 Gastro-esophageal reflux disease without esophagitis; J45.909 Unspecified asthma, uncomplicated; E11.9 Type 2 diabetes mellitus without complications; Z88.5 Allergy status to narcotic agent; Z91.048 Other nonmedicinal substance allergy status; Z79.899 Other long term (current) drug therapy
CPT/HCPCS: 99283

== ENCOUNTER 2022-01-20 12:52 | Emergency (ER) | payer OTHER ==
[~2022-01-20] VITALS: Ht 162.6 cm; Wt 154.2 kg
--- OUTSIDE RECORDS SUMMARY | 2022-01-20 12:54 | XMS ---
PreManage Notification: NEVIN YATES Security Information Technology Account Manager Events No recent Security Events currently on file CRITERIA MET - Group Notification CARE PROVIDERS SILVIA LOMBARDI Dentist: Manager Equity 12/12/2018-Current PHONE: [phone] Nimesh has no Care Guidelines for this patient. Jonnie VISIT COUNT (12 MO.) 5 [facility] Pache[facility] TOTAL 5 NOTE: Visits indicate total known visits. ED/UCC VISIT TRACKING (12 MO.) 01/20/2022 12:53 [facility] [place] TYPE: Emergency COMPLAINT: - R KNEE PAIN 12/16/2021 07:22 [facility] [place] TYPE: Emergency COMPLAINT: - FACIAL SWELLING, DIFFICULTY BREATHING/SWALLOWING DIAGNOSES: - Gastro-esophageal reflux disease without esophagitis - Contact with and (suspected) exposure to COVID-19 - Other allergy status, other than to drugs and biological substances - Allergy status to narcotic agent - Type 2 diabetes mellitus without complications - Headache, unspecified - Acute sialoadenitis - Other termite exterminator (current) drug therapy - Unspecified asthma, uncomplicated 05/22/2021 08:58 [facility] [place] TYPE: Emergency COMPLAINT: - BODY TWITCHES DIAGNOSES: - Fasciculation - Disruption of wound, unspecified, initial encounter - Obesity, unspecified - Adverse effect of other antiepileptic and sedative-hypnotic drugs, initial encounter - Body mass index [BMI] 50.0-59.9, adult - Other fpc (current) drug therapy - Gastro-esophageal reflux disease without esophagitis - Other nonmedicinal substance allergy status - Unspecified asthma, uncomplicated - Allergy status to narcotic agent - Type 2 diabetes mellitus without complications - Disruption of external operation (surgical) wound, not elsewhere classified, initial encounter 05/21/2021 08:40 [facility] [place] TYPE: Emergency COMPLAINT: - POST OP PROBLEM DIAGNOSES: - Gastro-esophageal reflux disease without esophagitis - Type 2 diabetes mellitus without complications - Postprocedural seroma of a genitourinary system organ or structure following a genitourinary system procedure - Other nonmedicinal substance allergy status - Unspecified asthma, uncomplicated - Allergy status to narcotic agent - Obesity, unspecified - Other termite exterminator (current) drug therapy 05/19/2021 20:01 [facility] [place] TYPE: Emergency COMPLAINT: - POST OP PROBLEM DIAGNOSES: - Other termite exterminator (current) drug therapy - Obesity, unspecified - Other postprocedural complications and disorders of genitourinary system - Gastro-esophageal reflux disease without esophagitis - Other nonmedicinal substance allergy status - Unspecified asthma, uncomplicated - Allergy status to narcotic agent - Type 2 diabetes mellitus without complications - Other postprocedural complications and disorders of genitourinary system INPATIENT VISIT TRACKING (12 MO.) 05/13/2021 14:[address] [facility] [place] TYPE: Medical Surgical COMPLAINT: - S/P L/S,TAHBS DIAGNOSES: - Allergy status to narcotic agent - Acquired absence of other specified parts of digestive tract - Laparoscopic surgical procedure converted to open procedure - Allergy status to narcotic agent - Intramural leiomyoma of uterus - Acquired absence of other organs - Other nonmedicinal substance allergy status - Laparoscopic surgical procedure converted to open procedure - Nonalcoholic steatohepatitis (VÁZQUEZ) - Other nonmedicinal substance allergy status - Leiomyoma of uterus, unspecified - Other specified postprocedural states - Body mass index [BMI] 50.0-59.9, adult - Morbid (severe) obesity due to excess calories - Morbid (severe) obesity due to excess calories - Obstructive sleep apnea (adult) (pediatric) - Gastro-esophageal reflux disease without esophagitis - Prediabetes - Body mass index [BMI] 50.0-59.9, adult - Excessive and frequent menstruation with irregular cycle - Tubal ligation status [email or web address]
[2022-01-20] MEDS ORDERED: HYDROCODON-ACE1 EA11 PO ×2 (14:10→15:53)
== END 2022-01-20 16:00 | disposition home or self-care (01) ==
LOC: ED 12:52
DX: S83.91XA Sprain of unspecified site of right knee, initial encounter (principal); E66.9 Obesity, unspecified; K21.9 Gastro-esophageal reflux disease without esophagitis; J45.909 Unspecified asthma, uncomplicated; E11.9 Type 2 diabetes mellitus without complications; Z88.5 Allergy status to narcotic agent; Z91.048 Other nonmedicinal substance allergy status; Z79.899 Other long term (current) drug therapy; X50.0XXA Overexertion from strenuous movement or load, initial encounter
CPT/HCPCS: 73560; 96372; 99283-25; A9270; J1885

== ENCOUNTER 2023-09-07 12:32 | Emergency (ER) | payer OTHER ==
[~2023-09-07] VITALS: Ht 162.6 cm; Wt 133.7 kg
[~2023-09-07 12:32] MED LIST changes: +HYDROCODON-ACE1 EA11 PO
--- OUTSIDE RECORDS SUMMARY | 2023-09-07 12:35 | XMS ---
PreManage Notification: NEVIN YAETS Security Top Spotter Events No recent Security Events currently on file CRITERIA MET - Group Notification CARE PROVIDERS Yobani Niko Community Health Worker 02/18/2022-Current PHONE: [phone] SILVIA LOMBARDI Dentist: Software Test Developer 12/12/2018-Current PHONE: [phone] -Elsie- Dentist: Software Test Developer [facility] PHONE: [phone] KAYLEEN MEDINA Physician Animal Skinner Lorin CELIS PHONE: [phone] [facility]: Federally Qual[facility] Current WORKERS CLINIC \F\ Center (FQ) [facility] PHONE: [phone] Nimesh has no Care Guidelines for this patient. Jonnie VISIT COUNT (12 MO.) 1 [facility] TOTAL 1 NOTE: Visits indicate total known visits. ED/UCC VISIT TRACKING (12 MO.) 09/07/2023 12:[address] [facility] [place] TYPE: Emergency COMPLAINT: - POSS STAFF/MERSA INPATIENT VISIT TRACKING (12 MO.) No inpatient visits to display in this time frame [email or web address]
[2023-09-07] MEDS ORDERED: HYDROCODONE/ACETA 5/325 TAB PO ONE (14:00)
[2023-09-07] MEDS ORDERED: BACTRIM DS TAB1 EACH PO (14:19)
[2023-09-07] MEDS ORDERED: CEPHALEXIN500 MG PO (14:19)
[2023-09-07 14:57] VITALS: BP 137/93
== END 2023-09-07 14:58 | disposition home or self-care (01) ==
LOC: ED 12:32
DX: L03.116 Cellulitis of left lower limb (principal); L02.416 Cutaneous abscess of left lower limb; E66.9 Obesity, unspecified; K21.9 Gastro-esophageal reflux disease without esophagitis; J45.909 Unspecified asthma, uncomplicated; E11.9 Type 2 diabetes mellitus without complications; Z88.5 Allergy status to narcotic agent; Z91.048 Other nonmedicinal substance allergy status; Z79.899 Other long term (current) drug therapy
CPT/HCPCS: 10060; 99282-25

== ENCOUNTER 2023-09-14 14:58 | Emergency (ER) | payer OTHER ==
[~2023-09-14] VITALS: Ht 162.6 cm; Wt 138.7 kg
[~2023-09-14 14:58] MED LIST changes: +CEPHALEXIN500 MG PO; +DOXYCYCLINE HY100 MG PO; +MUPIROCIN22 GM TOP; +VISTARIL25 MG PO
--- OUTSIDE RECORDS SUMMARY | 2023-09-14 15:01 | XMS ---
PreManage Notification: NEVIN YATES Security Public Health Sanitarian Technician Events No recent Security Events currently on file CRITERIA MET - Group Notification - [facility] - 2 Visits in 30 Days CARE PROVIDERS Niko Hilton Community Health Worker 02/18/2022-Current PHONE: [phone] SILVIA LOMBARDI Dentist: Media Consultant 12/12/2018-Current PHONE: [phone] -Elsie- Dentist: Media Consultant [facility] PHONE: [phone] KAYLEEN MEDINA Physician Income Tax Return Preparer [facility]IMAL PHONE: [phone] [facility] Clinic/Center: Federally Qualified [facility] Current WORKERS CLINIC [facility] (FQ) [facility] PHONE: [phone] Nimesh has no Care Guidelines for this patient. Jonnie VISIT COUNT (12 MO.) 4 [facility] TOTAL 4 NOTE: Visits indicate total known visits. ED/UCC VISIT TRACKING (12 MO.) 09/14/2023 15:00 [facility] [place] TYPE: Emergency COMPLAINT: - VOMITING AND WOUND CHECK 09/14/2023 03:38 [facility] [place] TYPE: Emergency COMPLAINT: - WOUND CHECK 09/11/2023 21:43 [facility] [place] TYPE: Emergency COMPLAINT: - CHEST PAIN DIAGNOSES: - Allergy status to narcotic agent - Anxiety disorder, unspecified - Chest pain, unspecified - Obesity, unspecified - Other allergy status, other than to drugs and biological substances - Other chest pain - Other residential (current) drug therapy 09/07/2023 12:33 [facility] [place] TYPE: Emergency COMPLAINT: - POSS STAFF/MERSA DIAGNOSES: - Allergy status to narcotic agent - Cellulitis of left lower limb - Cutaneous abscess of left lower limb - Gastro-esophageal reflux disease without esophagitis - Obesity, unspecified - Other residential (current) drug therapy - Other nonmedicinal substance allergy status - Type 2 diabetes mellitus without complications - Unspecified asthma, uncomplicated INPATIENT VISIT TRACKING (12 MO.) No inpatient visits to display in this time frame [email or web address]
[2023-09-14] MEDS ORDERED: ONDANSETRON 4 MG TAB ODT SL ONE (16:15)
[2023-09-14 16:23] LABS: BASOPHILS 0.7 % (0-2); EOSINOPHILS 3.9 % (0-6); HEMATOCRIT 37.9 % (35.0-50.0); HEMOGLOBIN 12.4 g/dL (12.0-18.0); LYMPHOCYTES 28.5 % (24-44); MCH 27.7 (27-36); MCHC 32.7 g/dl (30-36); MCV 84.9 fl (81-99); MONOCYTES 7.7 % (0-12); NEUTROPHILS 59.2 % (39-80); PLATELET COUNT 306 K/uL (140-440); RBC 4.47 M/ul (4.3-5.7); RDW 15.8 (10.5-15.0)
[2023-09-14 16:39] LABS: ALBUMIN 2.9 g/dL (3.4-5.0); ALBUMIN/GLOBULIN RATIO 0.66 (1.1-2.4); ANION GAP 7.2 (7-21); BILIRUBIN, TOTAL 0.3 ng/dL (0.2-1.0); BUN/CREATININE RATIO 11.11 (6.0-28.6); CALCIUM 8.5 mg/dL (8.5-10.1); CREATININE, SERUM 0.99 mg/dL (0.55-1.02); POTASSIUM 3.2 mmol/L (3.5-5.1); PROTEIN, TOTAL 7.3 g/dL (6.4-8.2)
[2023-09-14] MEDS ORDERED: ONDANSETRON ODT4 MG PO (17:07)
[2023-09-14] MEDS ORDERED: CLEOCIN HCL300 MG PO (17:07)
[2023-09-14 17:25] VITALS: BP 118/108
== END 2023-09-14 17:23 | disposition home or self-care (01) ==
LOC: ED 14:58
PROVIDERS: Emergency Medicine
DX: L02.416 Cutaneous abscess of left lower limb (principal); E66.9 Obesity, unspecified; Z88.5 Allergy status to narcotic agent; Z91.09 Other allergy status, other than to drugs and biological substances
CPT/HCPCS: 36415; 80053; 80307; 81001; 83605; 85025; A9270

== ENCOUNTER 2024-03-01 19:49 | Emergency (ER) | payer OTHER ==
[~2024-03-01] VITALS: Ht 162.6 cm; Wt 104.3 kg
[~2024-03-01 19:49] MED LIST changes: +CLEOCIN HCL300 MG PO
--- OUTSIDE RECORDS SUMMARY | 2024-03-01 19:55 | XMS ---
PreManage Notification: NEVIN YATES Security Manager Investment Banking Events No recent Security Events currently on file CRITERIA MET - Group Notification CARE PROVIDERS Niko Hilton Community Health Worker 02/18/2022-Current PHONE: [phone] SILVIA LOMBARDI Dentist: Blade Filer 12/12/2018-Current PHONE: [phone] -[facility] Dentist: Blade Filer [facility] PHONE: [phone] -[place]- Dentist: Blade Filer [facility] PHONE: [phone] KAYLEEN MEDINA PHONE: [phone] [facility]: [facility] PHONE: [phone] Nimesh has no Care Guidelines for this patient. Jonnie VISIT COUNT (12 MO.) 5 KAMINI Pacheco TOTAL 5 NOTE: Visits indicate total known visits. ED/UCC VISIT TRACKING (12 MO.) 03/01/2024 19:49 [facility] [place] TYPE: Emergency COMPLAINT: - BODY PAIN 09/14/2023 15:00 [facility] [place] TYPE: Emergency COMPLAINT: - VOMITING AND WOUND CHECK DIAGNOSES: - Allergy status to narcotic agent - Cutaneous abscess of left lower limb - Local infection of the skin and subcutaneous tissue, unspecified - Obesity, unspecified - Other allergy status, other than to drugs and biological substances 09/14/2023 03:38 [facility] [place] TYPE: Emergency COMPLAINT: - WOUND CHECK DIAGNOSES: - Allergy status to narcotic agent - Cellulitis of left lower limb - Encounter for change or removal of nonsurgical wound dressing - Gastro-esophageal reflux disease without esophagitis - Methicillin resistant Staphylococcus aureus infection as the cause of diseases classified elsewhere - Obesity, unspecified - Other group home (current) drug therapy - Other nonmedicinal substance allergy status - Type 2 diabetes mellitus without complications - Unspecified asthma, uncomplicated 09/11/2023 21:43 [facility] [place] TYPE: Emergency COMPLAINT: - CHEST PAIN DIAGNOSES: - Allergy status to narcotic agent - Anxiety disorder, unspecified - Chest pain, unspecified - Obesity, unspecified - Other allergy status, other than to drugs and biological substances - Other chest pain - 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 09/07/2023 12:33 [facility] [place] TYPE: Emergency COMPLAINT: - POSS STAFF/MERSA DIAGNOSES: - Allergy status to narcotic agent - Cellulitis of left lower limb - Cutaneous abscess of left lower limb - Gastro-esophageal reflux disease without esophagitis - Obesity, unspecified - 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
[2024-03-01 22:25] LABS: BASOPHILS 0.6 % (0-2); EOSINOPHILS 2.7 % (0-6); HEMATOCRIT 39.3 % (35.0-50.0); HEMOGLOBIN 13.4 g/dL (12.0-18.0); LYMPHOCYTES 27.3 % (24-44); MCH 29.4 (27-36); MCV 86.7 fl (81-99); MONOCYTES 7.8 % (0-12); NEUTROPHILS 61.6 % (39-80); PLATELET COUNT 219 K/uL (140-440); RBC 4.54 M/ul (4.3-5.7); RDW 15.2 (10.5-15.0)
[2024-03-01] MEDS ORDERED: hydrOXYzine pamoate 50 MG CAP PO ONE (22:30)
[2024-03-01 22:39] LABS: ALBUMIN 3.4 g/dL (3.4-5.0); ALBUMIN/GLOBULIN RATIO 0.94 (1.1-2.4); ANION GAP 10.6 (7-21); BILIRUBIN, TOTAL 0.6 ng/dL (0.2-1.0); BUN/CREATININE RATIO 22.22 (6.0-28.6); CALCIUM 9.1 mg/dL (8.5-10.1); CREATININE, SERUM 0.72 mg/dL (0.55-1.02); POTASSIUM 3.6 mmol/L (3.5-5.1)
[2024-03-01] MEDS ORDERED: KETOROLAC TROMETHAMINE 30 MG/ML VIAL IV ONE (23:45)
[2024-03-02 00:01] VITALS: BP 103/66
== END 2024-03-02 00:17 | disposition home or self-care (01) ==
LOC: ED 19:49
PROVIDERS: Internal Medicine
DX: S00.12XA Contusion of left eyelid and periocular area, initial encounter (principal); S00.33XA Contusion of nose, initial encounter; K21.9 Gastro-esophageal reflux disease without esophagitis; J45.909 Unspecified asthma, uncomplicated; R73.03 Prediabetes; Z91.048 Other nonmedicinal substance allergy status; Z88.5 Allergy status to narcotic agent; Z79.899 Other long term (current) drug therapy; E66.9 Obesity, unspecified; Z68.39 Body mass index [BMI] 39.0-39.9, adult; Y04.2XXA Assault by strike against or bumped into by another person, initial encounter
CPT/HCPCS: 36415; 70450; 70486; 70498; 71045; 72125; 80053; 80307; 85025; 99284-25; G0480; J1885; Q9967

== ENCOUNTER 2024-04-17 10:30 | Emergency (ER) | payer OTHER ==
[~2024-04-17] VITALS: Ht 162.6 cm; Wt 100.0 kg
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
[2024-04-17] MEDS ORDERED: hydrOXYzine pamoate 50 MG CAP PO SCH (10:46)
[2024-04-17] MEDS ORDERED: ACETAMINOPHEN 325 MG TAB PO ONE (11:30)
[2024-04-17 11:45] LABS: BASOPHILS 1.3 % (0-2); EOSINOPHILS 4.3 % (0-6); HEMOGLOBIN 13.1 g/dL (12.0-18.0); LYMPHOCYTES 28.8 % (24-44); MCH 29.7 (27-36); MCHC 34.3 g/dl (30-36); MCV 86.6 fl (81-99); MONOCYTES 9.4 % (0-12); NEUTROPHILS 56.2 % (39-80); PLATELET COUNT 240 K/uL (140-440); RBC 4.39 M/ul (4.3-5.7); RDW 14.9 (10.5-15.0)
[2024-04-17 12:09] LABS: ACETAMINOPHEN 0 ug/mL (10-30); ALBUMIN 3.2 g/dL (3.4-5.0); ALBUMIN/GLOBULIN RATIO 0.86 (1.1-2.4); ALCOHOL, MEDICAL <3 ng/dL (<3); ALKALINE PHOSPHATASE 66 U/L (46-116); ALT (SGPT) 20 U/L (14-59); ANION GAP 7.5 (7-21); AST (SGOT) 17 U/L (15-37); BILIRUBIN, TOTAL 0.4 ng/dL (0.2-1.0); BUN/CREATININE RATIO 9.72 (6.0-28.6); CALCIUM 8.9 mg/dL (8.5-10.1); CARBON DIOXIDE 29 mmol/L (21-32); CHLORIDE 105 mmol/L (98-107); CREATININE, SERUM 0.72 mg/dL (0.55-1.02); GLOMERULAR FILTRATION RATE,EST 109 mL/min (>60); POTASSIUM 3.5 mmol/L (3.5-5.1); PROTEIN, TOTAL 6.9 g/dL (6.4-8.2); SALICYLATE 0.7 mg/dL (2.8-20.0); TSH, 3RD GENERATION 0.938 uIU/mL (0.358-3.740); UREA NITROGEN 7 mg/dL (7-18)
[2024-04-17] MEDS ORDERED: OMEPRAZOLE20 MG PO (13:16)
[2024-04-17 15:37] LABS: BILIRUBIN, URINE NEGATIVE (negative); BLOOD/HGB, URINE NEGATIVE (Negative); KETONE, URINE NEGATIVE (Negative); LEUK ESTERASE, URINE NEGATIVE (negative); NITRITE, URINE NEGATIVE (negative)
[2024-04-17 15:51] LABS: AMPHETAMINES, URINE POSITIVE (NEGATIVE); BARBITURATES, URINE NEGATIVE (NEGATIVE); BENZODIAZEPINE, URINE NEGATIVE (NEGATIVE); BUPRENORPHINE, URINE NEGATIVE (NEGATIVE); CANNABINOID, URINE NEGATIVE (NEGATIVE); COCAINE, URINE NEGATIVE (NEGATIVE); ECSTASY, URINE NEGATIVE (NEGATIVE); FENTANYL, URINE NEGATIVE (NEGATIVE); METHADONE, URINE NEGATIVE (NEGATIVE); OPIATES, URINE NEGATIVE (NEGATIVE); OXYCODONE, URINE NEGATIVE (NEGATIVE); PHENCYCLIDINE, URINE NEGATIVE (NEGATIVE)
[2024-04-17] MEDS ORDERED: ACETAMINOPHEN 325 MG TAB PO PRN (21:30)
[2024-04-18] MEDS ORDERED: LORazepam 1 MG TAB PO ONE (13:00)
[2024-04-18] MEDS ORDERED: INHALER, ASSIST DEVICES 1 EACH SPACER MISC ONE (13:15)
[2024-04-18] MEDS ORDERED: ALBUTEROL SULFATE 8 GM HOME.PACK INH ONE (13:15)
[2024-04-18] MEDS ORDERED: OLANZapine 10 MG TABDIS PO SCH (23:51)
[2024-04-19 14:47] LABS: INFLUENZA B NAA NEGATIVE (NEGATIVE); RESPIRATORY SYNCYTIAL VIR NAA NEGATIVE (NEGATIVE)
--- NOTE | 2024-04-20 15:26 | EKG ---
[facility] [address] [place] [address] Signed Normal sinus rhythm Possible Anterior infarct , age undetermined Abnormal ECG When compared with ECG of 11-SEP-2023 21:44, No significant change was found Confirmed by Maria Luisa Greenfield MD () on 04/20/2024 3:26:48 PM Electronically Signed By: MARIA LUISA GREENFIELD MD 04/20/24 1526 PATIENT NAME: NEVIN YATES Electrocardiogram DATE OF : 83 PHYSICIAN: MARIA LUISA GREENFIELD MD REPORT #: [id number] REPORT IS CONFIDENTIAL AND NOT TO BE RELEASED WITHOUT AUTHORIZATION
[2024-04-20] MEDS ORDERED: DOCUSATE SODIUM 100 MG CAP PO PRN (19:15)
[2024-04-21 09:48] VITALS: BP 112/90
== END 2024-04-21 09:42 ==
LOC: ED 10:30
PROVIDERS: Emergency Medicine
DX: Z00.8 Encounter for other general examination (principal); R45.1 Restlessness and agitation; R06.4 Hyperventilation; K21.9 Gastro-esophageal reflux disease without esophagitis; J45.909 Unspecified asthma, uncomplicated; R73.03 Prediabetes; Z88.5 Allergy status to narcotic agent; Z91.048 Other nonmedicinal substance allergy status; Z79.899 Other long term (current) drug therapy
CPT/HCPCS: 36415; 80053; 80307; 81003; 84443; 84484; 84703; 85025; 87502; 93005; 93010; 99285; A9270; A9270-GY; G0480; U0002

== ENCOUNTER 2024-09-02 12:43 | Emergency (ER) | payer OTHER ==
[~2024-09-02] VITALS: Ht 162.6 cm; Wt 90.9 kg
--- OUTSIDE RECORDS SUMMARY | 2024-09-02 12:50 | XMS ---
PreManage Notification: NEVIN YATES Security Sand Technologist Events No recent Security Events currently on file CRITERIA MET - Group Notification CARE PROVIDERS Niko Hilton Community Health Worker 02/18/2022-Current PHONE: [phone] SILVIA LOMBARDI Dentist: Casino Accountant 12/12/2018-Current PHONE: [phone] [facility]Center: Primary [facility] PHONE: [phone] Nimesh has no Care Guidelines for this patient. EKan VISIT COUNT (12 MO.) 7 KAMINI Pacheco TOTAL 7 NOTE: Visits indicate total known visits. ED/UCC VISIT TRACKING (12 MO.) 09/02/2024 12:43 [facility] [place] TYPE: Emergency COMPLAINT: - MEDICAL CLEARANCE 04/17/2024 10:31 [facility] [place] TYPE: Emergency COMPLAINT: - MEDICAL CLEARANCE DIAGNOSES: - Allergy status to narcotic agent - Encounter for other general examination - Gastro-esophageal reflux disease without esophagitis - Hyperventilation - Other residential (current) drug therapy - Other nonmedicinal substance allergy status - Prediabetes - Restlessness and agitation - Unspecified asthma, uncomplicated 03/01/2024 19:49 [facility] [place] TYPE: Emergency [...] Headache, unspecified - Obesity, unspecified - Other terminal supervisor (current) drug therapy - Other [...] classified elsewhere - Obesity, unspecified - Other terminal supervisor (current) drug therapy - Other [...] asthma, uncomplicated INPATIENT VISIT TRACKING (12 MO.) 04/20/2024 13:40 [facility] DIAGNOSES: - Other bipolar disorder - Post-traumatic stress disorder, unspecified - Psychosis Unspecified [email or web address]
[2024-09-02] MEDS ORDERED: ACETAMINOPHEN 325 MG TAB PO ONE (13:15)
[2024-09-02] MEDS ORDERED: CYCLOBENZAPRINE10 MG PO (13:21)
[2024-09-02] MEDS ORDERED: DICLOFENAC SODI50 MG PO (13:22)
[2024-09-02] MEDS ORDERED: HYDROXYZINE PAM50 MG PO (13:22)
[2024-09-02] MEDS ORDERED: OLANZAPINE10 MG PO (13:23)
[2024-09-02 13:55] LABS: BILIRUBIN, URINE NEGATIVE (negative); BLOOD/HGB, URINE NEGATIVE (Negative); KETONE, URINE NEGATIVE (Negative); LEUK ESTERASE, URINE NEGATIVE (negative); NITRITE, URINE NEGATIVE (negative)
[2024-09-02] MEDS ORDERED: PANTOPRAZOLE SODIUM 40 MG TABEC PO SCH (13:55)
[2024-09-02 13:57] LABS: BASOPHILS 1.1 % (0-2); EOSINOPHILS 1.9 % (0-6); HEMATOCRIT 37.7 % (35.0-50.0); HEMOGLOBIN 12.9 g/dL (12.0-18.0); LYMPHOCYTES 29.3 % (24-44); MCH 29.6 (27-36); MCHC 34.4 g/dl (30-36); MCV 86.1 fl (81-99); NEUTROPHILS 59.7 % (39-80); PLATELET COUNT 283 K/uL (140-440); RBC 4.38 M/ul (4.3-5.7); RDW 16.1 (10.5-15.0)
[2024-09-02] MEDS ORDERED: hydrOXYzine pamoate 50 MG CAP PO PRN (14:00)
[2024-09-02] MEDS ORDERED: CYCLOBENZAPRINE HCL 10 MG TAB PO PRN (14:00)
[2024-09-02] MEDS ORDERED: INHALER, ASSIST DEVICES 1 EACH SPACER MISC ONE (14:00)
[2024-09-02] MEDS ORDERED: ALBUTEROL SULFATE 8 GM HOME.PACK INH PRN (14:00)
[2024-09-02 14:11] LABS: AMPHETAMINES, URINE NEGATIVE (NEGATIVE); BARBITURATES, URINE NEGATIVE (NEGATIVE); BENZODIAZEPINE, URINE NEGATIVE (NEGATIVE); BUPRENORPHINE, URINE NEGATIVE (NEGATIVE); CANNABINOID, URINE NEGATIVE (NEGATIVE); COCAINE, URINE NEGATIVE (NEGATIVE); ECSTASY, URINE NEGATIVE (NEGATIVE); FENTANYL, URINE NEGATIVE (NEGATIVE); METHADONE, URINE NEGATIVE (NEGATIVE); OPIATES, URINE NEGATIVE (NEGATIVE); OXYCODONE, URINE NEGATIVE (NEGATIVE); PHENCYCLIDINE, URINE NEGATIVE (NEGATIVE)
[2024-09-02 14:19] LABS: ACETAMINOPHEN 4 ug/mL (10-30); ALBUMIN 3.2 g/dL (3.4-5.0); ALBUMIN/GLOBULIN RATIO 0.94 (1.1-2.4); ALCOHOL, MEDICAL <3 ng/dL (<3); ALKALINE PHOSPHATASE 66 U/L (46-116); ALT (SGPT) 25 U/L (14-59); ANION GAP 7.8 (7-21); AST (SGOT) 15 U/L (15-37); BILIRUBIN, TOTAL 0.3 mg/dL (0.2-1.0); BUN/CREATININE RATIO 14.08 (6.0-28.6); CALCIUM 8.5 mg/dL (8.5-10.1); CARBON DIOXIDE 31 mmol/L (21-32); CHLORIDE 106 mmol/L (98-107); CREATININE, SERUM 0.71 mg/dL (0.55-1.02); GLOMERULAR FILTRATION RATE,EST 110 mL/min (>60); POTASSIUM 3.8 mmol/L (3.5-5.1); PROTEIN, TOTAL 6.6 g/dL (6.4-8.2); SALICYLATE <0.2 mg/dL (2.8-20.0); TSH, 3RD GENERATION 0.537 uIU/mL (0.358-3.740); UREA NITROGEN 10 mg/dL (7-18)
[2024-09-02] MEDS ORDERED: OLANZapine 10 MG TABDIS PO SCH (21:00)
[2024-09-02] MEDS ORDERED: DICLOFENAC SOD 75 MG TABEC PO SCH (21:00)
[2024-09-03 14:03] VITALS: BP 114/74
== END 2024-09-03 14:03 ==
LOC: ED 12:43
PROVIDERS: Emergency Medicine
DX: R45.851 Suicidal ideations (principal); K21.9 Gastro-esophageal reflux disease without esophagitis; J45.909 Unspecified asthma, uncomplicated; Z88.5 Allergy status to narcotic agent; Z91.038 Other insect allergy status
CPT/HCPCS: 36415; 80053; 80307; 81003; 84443; 85025; 99285; A9270; G0480

== ENCOUNTER 2024-09-28 05:27 | Emergency (ER) | payer OTHER ==
[~2024-09-28] VITALS: Ht 165.1 cm; Wt 107.0 kg
[~2024-09-28 05:27] MED LIST changes: +CYCLOBENZAPRINE10 MG PO; +DICLOFENAC SODI50 MG PO; +HYDROXYZINE PAM50 MG PO; +OLANZAPINE10 MG PO
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
[2024-09-28] MEDS ORDERED: DIPHTH,PERTUSS(ACELL),TET VAC 0.5 ML SYRINGE IM ONE (06:15)
[2024-09-28] MEDS ORDERED: DOXYCYCLINE HYCLATE 100 MG HOME.PACK PO ONE (06:15)
[2024-09-28 06:27] VITALS: BP 123/76
== END 2024-09-28 06:25 | disposition home or self-care (01) ==
LOC: ED 05:27
DX: S60.552A Superficial foreign body of left hand, initial encounter (principal); L03.114 Cellulitis of left upper limb; K21.9 Gastro-esophageal reflux disease without esophagitis; J45.909 Unspecified asthma, uncomplicated; W45.8XXA Other foreign body or object entering through skin, initial encounter; Z79.899 Other long term (current) drug therapy; Z91.048 Other nonmedicinal substance allergy status; Z88.5 Allergy status to narcotic agent
CPT/HCPCS: 90471; 90715; 99283-25; A9270

== ENCOUNTER 2024-11-12 06:26 | Emergency (ER) | payer OTHER ==
[~2024-11-12] VITALS: Ht 165.1 cm; Wt 107.0 kg
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
[2024-11-12] MEDS ORDERED: ABILIFY15 MG PO (06:42)
[2024-11-12] MEDS ORDERED: TRAZODONE HCL50 MG PO (06:42)
[2024-11-12] MEDS ORDERED: GABAPENTIN300 MG PO (06:42)
[2024-11-12] MEDS ORDERED: LITHIUM CARBON600 MG PO (06:42)
[2024-11-12] MEDS ORDERED: ACETAMINOPHEN 325 MG TAB PO ONE (07:30)
[2024-11-12] MEDS ORDERED: CANE1 EACH MISC (08:44)
[2024-11-12 08:54] VITALS: BP 118/65
== END 2024-11-12 08:55 | disposition home or self-care (01) ==
LOC: ED 06:26
DX: M25.561 Pain in right knee (principal); M25.562 Pain in left knee; M54.9 Dorsalgia, unspecified; K21.9 Gastro-esophageal reflux disease without esophagitis; J45.909 Unspecified asthma, uncomplicated; Z90.711 Acquired absence of uterus with remaining cervical stump; Z88.8 Allergy status to other drugs, medicaments and biological substances; Z88.5 Allergy status to narcotic agent; Z79.899 Other long term (current) drug therapy
CPT/HCPCS: 73560; 99283; A9270

== ENCOUNTER 2024-11-17 09:15 | Emergency (ER) | payer OTHER ==
[~2024-11-17] VITALS: Ht 165.1 cm; Wt 107.4 kg
[~2024-11-17 09:15] MED LIST changes: +ABILIFY15 MG PO; +CANE1 EACH MISC; +GABAPENTIN300 MG PO; +LITHIUM CARBON600 MG PO; +TRAZODONE HCL50 MG PO
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
[2024-11-17] MEDS ORDERED: ALBUTEROL/IPRATROPIUM 3 ML NEB INH ONE (09:45)
[2024-11-17 10:50] VITALS: BP 106/60
[2024-11-18] MEDS ORDERED: SEROQUEL25 MG PO (08:43)
--- NOTE | 2024-11-18 17:50 | EKG ---
[facility] [address] [place], [place] [address] Signed Normal sinus rhythm Cannot rule out Anterior infarct (cited on or before 17-APR-2024) Abnormal ECG When compared with ECG of 17-APR-2024 19:16, No significant change was found Confirmed by Gil Jeronimo DO ([id number]) on 11/18/2024 5:49:48 PM Electronically Signed By: GIL JERONIMO DO 11/18/24 1750 PATIENT NAME: ROSALINA YATESHalie FIGUEROA Electrocardiogram DATE OF : 83 PHYSICIAN: GIL JERONIMO DO REPORT #: [id number] REPORT IS CONFIDENTIAL AND NOT TO BE RELEASED WITHOUT AUTHORIZATION
== END 2024-11-17 11:00 | disposition home or self-care (01) ==
LOC: ED 09:15
DX: F41.9 Anxiety disorder, unspecified (principal); K21.9 Gastro-esophageal reflux disease without esophagitis; J45.909 Unspecified asthma, uncomplicated; R73.03 Prediabetes; E66.9 Obesity, unspecified; Z68.39 Body mass index [BMI] 39.0-39.9, adult; Z59.00 Homelessness unspecified; Z91.048 Other nonmedicinal substance allergy status; Z88.5 Allergy status to narcotic agent; Z79.1 Long term (current) use of non-steroidal anti-inflammatories (NSAID); Z79.899 Other long term (current) drug therapy
CPT/HCPCS: 93005; 93010; 94640; 99284; Q0177

== ENCOUNTER 2024-11-18 06:44 | Emergency (ER) | payer OTHER ==
[~2024-11-18] VITALS: Ht 165.1 cm; Wt 108.7 kg
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
[2024-11-18] MEDS ORDERED: SEROQUEL25 MG PO (08:43)
[2024-11-18] MEDS ORDERED: QUETIAPINE FUMARATE 25 MG TAB PO ONE (08:45)
[2024-11-18 09:38] VITALS: BP 116/66
== END 2024-11-18 09:20 | disposition home or self-care (01) ==
LOC: ED 06:44
DX: F41.9 Anxiety disorder, unspecified (principal); E66.9 Obesity, unspecified; K21.9 Gastro-esophageal reflux disease without esophagitis; J45.909 Unspecified asthma, uncomplicated; Z88.5 Allergy status to narcotic agent; Z91.09 Other allergy status, other than to drugs and biological substances; Z79.899 Other long term (current) drug therapy
CPT/HCPCS: 80053; 80307; 84443; 84703; 85025; 99283; A9270; G0480